=== PATIENT | male | born 2000 | race African-American/Black ===

== ENCOUNTER 2018-11-03 00:14 | Inpatient (IN) | payer OTHER ==
[~2018-11-03] VITALS: Ht 185.4 cm; Wt 89.1 kg
[2018-11-03] MEDS ORDERED: NS 1,000 ML IV ONE (01:00)
[2018-11-03 01:03] LABS: BASO % 0.5 % (0.0-1.0); HEMATOCRIT 40.9 % (42.0-52.0); HEMOGLOBIN 13.7 g/dl (13.5-17.5); LYMPH % 11.1 % (24.0-44.0); MEAN CORPUSCULAR HEMOGLOBIN 29.7 pg (27.0-33.0); MEAN CORPUSCULAR HGB CONC 33.5 g/dl (32.0-36.5); MEAN CORPUSCULAR VOLUME 88.7 fl (80.0-96.0); MONO # 0.7 10^3/uL (0.0-0.8); MONO % 7.4 % (0.0-5.0); NEUTROPHILS # 7.1 10^3/uL (1.8-7.7); NEUTROPHILS % 80.7 % (36.0-66.0); PLATELET COUNT, AUTOMATED 198 10^3/uL (150-450); RED BLOOD COUNT 4.61 10^6/uL (4.30-6.10); WHITE BLOOD COUNT 8.7 10^3/uL (4.0-10.0)
[2018-11-03 02:11] LABS: ACETAMINOPHEN LEVEL < 2.0 UG/ML (10.0-30.0); ALBUMIN 3.8 GM/DL (3.2-5.2); ALT/SGPT 26 U/L (12-78); BILIRUBIN,DIRECT 0.1 MG/DL (0.0-0.2); BILIRUBIN,TOTAL 0.3 MG/DL (0.2-1.0); BLOOD UREA NITROGEN 20 MG/DL (7-18); CALCIUM LEVEL 8.9 MG/DL (8.5-10.1); CARBON DIOXIDE LEVEL 27 MEQ/L (21-32); CHLORIDE LEVEL 113 MEQ/L (98-107); CPK CREATINE PHOSPHOKINASE 463 U/L (39-308); CREATININE FOR GFR 1.53 MG/DL (0.70-1.30); ETHYL ALCOHOL (ETHANOL) < 0.003 % (0.000-0.010); GLUCOSE, FASTING 114 MG/DL (70-100); POTASSIUM SERUM 3.5 MEQ/L (3.5-5.1); SALICYLATE LEVEL < 1.7 MG/DL (5.0-30.0); SODIUM LEVEL 146 MEQ/L (136-145); TOTAL PROTEIN 7.2 GM/DL (6.4-8.2)
[2018-11-03] MEDS ORDERED: NS 2,670 ML in APPROPRIATE DILUENT 1 EA IV ONE (02:30)
[2018-11-03 05:00] LABS: AMPHETAMINES LEVEL URINE NEGATIVE (NEGATIVE); BARBITURATES URINE NEGATIVE (NEGATIVE); BENZODIAZEPINES URINE NEGATIVE (NEGATIVE); CANNABINOIDS URINE POSITIVE (NEGATIVE); COCAINE METABOLITE URINE NEGATIVE (NEGATIVE); METHADONE URINE NEGATIVE (NEGATIVE); OPIATES URINE NEGATIVE (NEGATIVE); PHENCYCLIDINE URINE NEGATIVE (NEGATIVE)
--- NOTE | 2018-11-03 06:03 | ECGEPIP ---
Stationary ECG Study [facility] - ED Test Date: 2018-11-03 Pat Name: MELISSA ROSARIO Department: Room: - Gender: M Prevention Rn: gt : 2000 Requested By: JACY Kamara Order Number: [id number] Reading MD: John Angel Measurements Intervals [place] Rate: 126 P: 69 CT: 146 QRS: 12 QRSD: 93 T: 47 QT: 357 QTc: 518 Interpretive Statements SINUS TACHYCARDIA NONSPECIFIC T-WAVE ABNORMALITY NO PRIORS FOR COMPARISON Electronically Signed On 11-03-2018 6:03:17 EDT by John Angel
[2018-11-03] MEDS ORDERED: ACETAMINOPHEN TAB 650MG DOSE (2X325MG) PO PRN (10:30)
[2018-11-03] MEDS ORDERED: traZODone 50 MG TAB PO PRN (10:30)
[2018-11-03] MEDS ORDERED: MAALOX 30 ML SUSP *UDC PO PRN (10:30)
[2018-11-03] MEDS ORDERED: MOM 30ML SUSPENSION UDC PO PRN (10:30)
[2018-11-03 11:05] VITALS: BP 133/62
--- NOTE | 2018-11-03 16:10 | HPEPDOC ---
General Date of Admission November 03, 2018 at 10:22 Attending Physician: LAURA MENEZES MD Chief Complaint The patient is a 18-year-old male admitted with a reason for visit of Mood Disorder. Source: Patient, EMS notes reviewed Exam Limitations: Clinical conditions Timing/Duration: Unsure Severity: Moderate Associated Symptoms: Increased agitation History of Present Illness Patient is a 18-year-old male, who presented to emergency room via EMS services on account of acute onset, hysteria. Patient states he had just returned from pretrial confinement and smoked a blunt, after which he started feeling weird. Follow review of emergency room records also documented. Patient complaining of having suicidal thoughts, but denying having a specific plan to carry out n. He believes the blunt may have been laced with some other chemical but states he just "lost it". He was brought in by ambulance services and has no recollection of how he was brought to the hospital. At time of evaluation, he reports great improvement in his symptoms Home Medications Unable to Obtain Active Prescriptions or Reported Meds Allergies Coded Allergies: No Known Allergies (Verified Allergy, Unknown, 11/03/18) Past Medical History Medical History Denies Social History * Smoker: less than 1 pack/day Alcohol: Denies Drugs: marijuana A-FIB/CHADSVASC A-FIB History Current/History of A-Fib/PAF?: No Review of Systems Other systems A Limited review of systems was completed due to patient's mental status Physical Examination Other physical findings General: NAD. Skin: Warm, dry, intact. Cardiovascular: Regular rate and rhythm, no MRG, no jugular venous distention, no edema. Respiratory:CTAB, no accessory muscle use noted. Abdomen: Bowel sounds +, no tenderness, no distention Musculoskeletal: No joint deformities, Neurologic: CN 2-12 grossly intact, alert and oriented 3 Psychiatric: Appropriate mood and affect, no anxiety or agitation. Vital Signs Vital Signs Date Time Temp Pulse Resp B/P (MAP) Pulse Ox O2 Delivery O2 Flow Rate FiO2 11/03/18 11:05 97.8 83 16 133/62 (85) 100 11/03/18 10:53 Room Air Laboratory Data Labs 24H Laboratory Tests 2 11/03/18 00:43: Bedside Glucose (Misc Panel) 106H 11/03/18 00:53: Immature Granulocyte % (Auto) 0.3, White Blood Count 8.7, Red Blood Count 4.61, Hemoglobin 13.7, Hematocrit 40.9L, Mean Corpuscular Volume 88.7, Mean [place] uscular Hemoglobin 29.7, Mean Corpuscular Hemoglobin Concent 33.5, Red Cell Distribution Width 13.0, Platelet Count 198, Neutrophils (%) (Auto) 80.7H, Lymphocytes (%) (Auto) 11.1L, Monocytes (%) (Auto) 7.4H, Eosinophils (%) (Auto) 0.0, Basophils (%) (Auto) 0.5, Neutrophils # (Auto) 7.1, Lymphocytes # (Auto) 1.0L, Monocytes # (Auto) 0.7, Eosinophils # (Auto) 0.0, Basophils # (Auto) 0.0, Nucleated Red Blood Cells % (auto) 0.0, Anion Gap 6L, Calcium Level 8.9, Aspartate Amino Transf (AST/SGOT) 20, Alanine Aminotransferase (ALT/SGPT) 26, Alkaline Phosphatase 95, Total Bilirubin 0.3, Direct Bilirubin 0.1, Total Creatine Kinase 463H, Total Protein 7.2, Albumin 3.8, Albumin/Globulin Ratio 1.12, Thyroid Stimulating Hormone (TSH) 1.910, Salicylates Level < 1.7L, Acetaminophen Level < 2.0L, Ethyl Alcohol Level < 0.003 11/03/18 04:34: Urine Amphetamines Screen NEGATIVE, Urine Benzodiazepines Screen NEGATIVE, Urine Opiates Screen NEGATIVE, Urine Methadone Screen NEGATIVE, Urine Barbiturates Screen NEGATIVE, Urine Phencyclidine Screen NEGATIVE, Urine Cocaine Metabolite Screen NEGATIVE, Urine Cannabinoids Screen POSITIVEH CBC/BMP Laboratory Tests 11/03/18 00:53 Red Blood Count 4.61, Mean Corpuscular Volume 88.7, Mean Corpuscular Hemoglobin 29.7, Mean Corpuscular Hemoglobin Concent 33.5, Red Cell Distribution Width 13.0, Neutrophils (%) (Auto) 80.7 H, Lymphocytes (%) (Auto) 11.1 L, Monocytes (%) (Auto) 7.4 H, Eosinophils (%) (Auto) 0.0, Basophils (%) (Auto) 0.5, Neutrophils # (Auto) 7.1, Lymphocytes # (Auto) 1.0 L, Monocytes # (Auto) 0.7, Eosinophils # (Auto) 0.0, Basophils # (Auto) 0.0 Assessment/Plan Acute delirium with Polysubstance abuse -Management by primary team Plan / VTE VTE Prophylaxis Ordered?: No VTE Exclusion Mechanical Proph: Low Risk for VTE JOSH PISANO November 03, 2018 16:09
[2018-11-03 18:00] VITALS: BP 126/68
[2018-11-04 07:21] VITALS: BP 128/72
[2018-11-04 08:29] LABS: HEMATOCRIT 40.2 % (42.0-52.0); HEMOGLOBIN 12.9 g/dl (13.5-17.5); MEAN CORPUSCULAR HEMOGLOBIN 29.5 pg (27.0-33.0); MEAN CORPUSCULAR HGB CONC 32.1 g/dl (32.0-36.5); MEAN CORPUSCULAR VOLUME 91.8 fl (80.0-96.0); PLATELET COUNT, AUTOMATED 164 10^3/uL (150-450); RED BLOOD COUNT 4.38 10^6/uL (4.30-6.10); WHITE BLOOD COUNT 4.1 10^3/uL (4.0-10.0)
[2018-11-04 09:02] LABS: BLOOD UREA NITROGEN 11 MG/DL (7-18); CALCIUM LEVEL 9.2 MG/DL (8.5-10.1); CARBON DIOXIDE LEVEL 31 MEQ/L (21-32); CHLORIDE LEVEL 111 MEQ/L (98-107); CREATININE FOR GFR 1.18 MG/DL (0.70-1.30); GLUCOSE, FASTING 82 MG/DL (70-100); POTASSIUM SERUM 4.3 MEQ/L (3.5-5.1); SODIUM LEVEL 144 MEQ/L (136-145)
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
[2018-11-04 18:00] VITALS: BP 114/53
[2018-11-05 06:32] VITALS: BP 122/64
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
== END 2018-11-05 12:05 | disposition home or self-care (01) | DRG 881 ==
LOC: M ED 00:14 → M ED INP 10:22 → M PSY 11:04
PROVIDERS: ADMIT Psychiatry & Neurology Psychiatry; ATTEND Psychiatry & Neurology Psychiatry
DX: F32.9 Major depressive disorder, single episode, unspecified (principal); R45.851 Suicidal ideations; F41.9 Anxiety disorder, unspecified; F12.90 Cannabis use, unspecified, uncomplicated